=== PATIENT | female | born 1970 | race Caucasian/White ===

== ENCOUNTER → 2020-05-09 | Outpatient (CLI) | payer OTHER ==
[~2020-05-09] MED LIST: GADOTERATE 7.5 MMOL/15ML SYR ONE
== END | disposition home or self-care (01) ==
LOC: RAD 14:10
PROVIDERS: ATTEND Physician Assistant Surgical
DX: M51.17 Intervertebral disc disorders with radiculopathy, lumbosacral region (principal); M47.27 Other spondylosis with radiculopathy, lumbosacral region; M48.07 Spinal stenosis, lumbosacral region
CPT/HCPCS: 72158; A9575